=== PATIENT | female | born 1970 | race Caucasian/White ===

== ENCOUNTER 2020-10-17 10:55 | Emergency (ER) | payer OTHER ==
[~2020-10-17] VITALS: Ht 157.5 cm; Wt 77.1 kg
== END 2020-10-17 16:30 | disposition home or self-care (01) ==
LOC: ER1 10:55
DX: Z23 Encounter for immunization (principal); U07.1 COVID-19; E03.9 Hypothyroidism, unspecified; F17.200 Nicotine dependence, unspecified, uncomplicated
CPT/HCPCS: 99283; M0243; U0002

== ENCOUNTER 2021-08-15 10:55 | Observation (INO) | payer OTHER ==
[~2021-08-15] VITALS: Ht 157.5 cm; Wt 77.1 kg
[2021-08-15 12:02] LABS: HEMOGLOBIN 14.9 gm/dl (12.3-15.3); RED BLOOD COUNT 5.02 M/UL (4.00-5.10)
[2021-08-15 12:30] LABS: BUN/CREATININE RATIO 12 (0-10)
[2021-08-15] MEDS ORDERED: CALCIUM CARBON500 MG PO (15:51)
[2021-08-15] MEDS ORDERED: VITAMIN D21250 MCG PO (15:52)
[2021-08-15] MEDS ORDERED: IBU800 MG PO (15:52)
[2021-08-15] MEDS ORDERED: LEVOTHYROXINE25 MCG PO (15:53)
[2021-08-16 01:52] LABS: WHITE BLOOD COUNT 9.9 K/UL (4.5-11.0)
[2021-08-16 01:54] LABS: HEMOGLOBIN 12.6 gm/dl (12.3-15.3); RED BLOOD COUNT 4.29 M/UL (4.00-5.10)
[2021-08-16 01:56] LABS: BUN/CREATININE RATIO 16 (0-10)
--- NOTE | 2021-08-16 09:50 | NUR ---
PATIENT OXYGEN SATURATION NOTED TO BE 78% ON 5 LITERS HIGH FLOW NASAL CANNULA. RN NOTIFIED RESPIRATORY THERAPY AND THEY CAME TO ASSESS PATIENT. RN AND RESPIRATORY THERAPIST INCREASED OXYGEN TO 15 LITERS AND ONLY INCREASED PATIENT'S OXYGEN TO 86%. RN MADE DR. MENDEZ AWARE. HE ORDERED BUMEX IVP. PATIENT COMPLAINED OF CHEST PAIN. RN ADMINISTERED ONE DOSE OF PRN NITROGLYCERIN, PATIENT VERBALIZED RELIEF. MD MADE AWARE. RESPIRATORY THERAPIST SPOKE WITH MD AND REQUESTED ABG AND BIPAP. MD ALLOWED RT TO PERFORM THESE. PATIENT'S OXYGEN SATURATION INCREASED TO 100%. NO S/SX OF DISTRESS. BED LOCKED AND LOW. CALL LIGHT WITHIN REACH. FAMILY AT BEDSIDE.
[2021-08-16] MEDS ORDERED: CEFUROXIME250 MG PO (16:07)
== END 2021-08-16 17:13 | disposition home or self-care (01) ==
LOC: ER1 10:55 → CDU 14:33 → MED SURG 4 17:22
PROVIDERS: Physician Assistant; ADMIT Internal Medicine Infectious Disease
DX: T43.621A Poisoning by amphetamines, accidental (unintentional), initial encounter (principal); I21.4 Non-ST elevation (NSTEMI) myocardial infarction; N30.00 Acute cystitis without hematuria; F15.10 Other stimulant abuse, uncomplicated; F12.90 Cannabis use, unspecified, uncomplicated; J44.9 Chronic obstructive pulmonary disease, unspecified; E03.9 Hypothyroidism, unspecified; I08.1 Rheumatic disorders of both mitral and tricuspid valves; I27.20 Pulmonary hypertension, unspecified; F17.210 Nicotine dependence, cigarettes, uncomplicated; Z79.890 Hormone replacement therapy; Z79.899 Other long term (current) drug therapy
CPT/HCPCS: ECHO; 36415; 51701; 70450; 71045; 78452; 80053; 80307; 81001; 82550; 82553; 83735; 84443; 84484; 85025; 87077; 87086; 87186; 93005; 93017; 93306; 94640; 94760; 96374; 96376; 99285; A9502; G0378; G0480; J0696; J2785